=== PATIENT | female | born 1955 | race Caucasian/White ===

== ENCOUNTER → 2016-08-28 17:14 | Outpatient (CLI) | payer BC ==
[2010-06-14 13:03] VITALS: BMI 23.4
== END | disposition home or self-care (01) ==
LOC: D.MAMMO 09:00
DX: N63 Unspecified lump in breast (principal)

== ENCOUNTER 2017-07-10 09:50 | Emergency (ER) | payer BC ==
[2010-06-14 13:03] VITALS: BMI 23.4
[2017-07-10 10:16] LABS: BASOPHILS 0.1 % (0-2); EOSINOPHILS 1.1 % (0-7); HEMATOCRIT 41.3 % (36.0-48.0); HEMOGLOBIN 13.9 g/dL (12-16); IMMATURE GRANULOCYTES 0.8 % (0-5); LYMPHOCYTES 33.1 % (15-50); MCH 33.7 pg (26.0-34.0); MCHC 33.7 g/dL (31.0-37.0); MCV 100.2 fL (80.0-100.0); MEAN PLATELET VOLUME 9.8 fL (7.4-10.4); MONOCYTES 4.3 % (2-11); NEUTROPHILS 60.6 % (40-80); PLATELET COUNT 203 10x3/uL (130-400); RBC 4.12 10x6/uL (4.00-5.40); RDW 12.4 % (11.5-14.5); WBC 7.2 10x3/uL (4.8-10.8)
[2017-07-10 10:30] LABS: ALBUMIN 3.9 g/dL (3.4-5.0); ALKALINE PHOSPHATASE 52 U/L (46-116); ALT (SGPT) 39 U/L (10-68); CALC OSMOLALITY 280 mosm/kg (275-300); CALCIUM 8.8 mg/dL (8.5-10.1); CARBON DIOXIDE 27.5 mmol/L (21.0-32.0); CHLORIDE - SERUM 103 mmol/L (98-107); GLUCOSE 123 mg/dL (74-106); POTASSIUM - SERUM 3.2 mmol/L (3.5-5.1); PROTEIN - SERUM 7.2 g/dL (6.4-8.2); SODIUM 140 mmol/L (136-145); UREA NITROGEN 14 mg/dL (7-18); eGFR NON AFRICAN AMERICAN 60 mL/min (90-120)
[2017-07-10 10:41] LABS: CHOL - HDL RATIO 4.5 ratio (2.3-4.1); CHOLESTEROL, TOTAL 244 mg/dL (0-200); CKMB 0.6 U/L (0.0-3.6); CREATINE KINASE 35 UL (21-215); HDL CHOLESTEROL 54 mg/dL (32-96); LDL CHOLESTEROL 147 mg/dL (0-100); LDL-HDL RATIO 2.7 ratio (1.5-3.5); TRIGLYCERIDE 217 mg/dL (30-200); TROPONIN-I < 0.017 ng/mL (0.000-0.060)
== END 2017-07-10 15:08 | disposition home or self-care (01) ==
LOC: D.ER 09:50
PROVIDERS: Family Medicine
DX: R07.9 Chest pain, unspecified (principal)

== ENCOUNTER → 2017-11-06 20:35 | Outpatient (CLI) | payer BC ==
[2010-06-14 13:03] VITALS: BMI 23.4
== END | disposition home or self-care (01) ==
LOC: D.MAMMO 10-19 15:15
DX: Z12.31 Encounter for screening mammogram for malignant neoplasm of breast (principal)

== ENCOUNTER → 2019-03-03 08:44 | Outpatient (CLI) | payer MEDICAID ==
[2010-06-14 13:03] VITALS: BMI 23.4
== END | disposition home or self-care (01) ==
LOC: D.US 08:30
PROVIDERS: ATTEND Family Medicine
DX: N61.0 Mastitis without abscess (principal)

== ENCOUNTER 2019-11-14 02:30 | Emergency (ER) | payer MEDICAID ==
[~2019-11-14] VITALS: Ht 172.7 cm; Wt 65.9 kg
[2019-11-14 02:35] VITALS: Ht 172.7 cm; Wt 65.9 kg
[2019-11-14] MEDS ORDERED: LEVOXYL75 MCG (02:36)
[2019-11-14] MEDS ORDERED: HYDROCODON-ACE1 EA10 PO (02:36)
[2019-11-14 03:38] LABS: BASOPHILS 0.2 % (0-2); EOSINOPHILS 3.8 % (0-7); HEMATOCRIT 36.6 % (36.0-48.0); HEMOGLOBIN 12.6 g/dL (12-16); IMMATURE GRANULOCYTES 0.2 % (0-5); LYMPHOCYTES 30.4 % (15-50); MCH 34.4 pg (26.0-34.0); MCHC 34.4 g/dL (31.0-37.0); MEAN PLATELET VOLUME 9.6 fL (7.4-10.4); MONOCYTES 6.6 % (2-11); NEUTROPHILS 58.8 % (40-80); PLATELET COUNT 204 10x3/uL (130-400); RBC 3.66 10x6/uL (4.00-5.40); RDW 12.3 % (11.5-14.5); WBC 5.8 10x3/uL (4.8-10.8)
[2019-11-14 03:44] LABS: CALC OSMOLALITY 277 mosm/kg (275-300); CARBON DIOXIDE 30.5 mmol/L (21.0-32.0); CHLORIDE - SERUM 103 mmol/L (98-107); GLUCOSE 108 mg/dL (74-106); POTASSIUM - SERUM 3.7 mmol/L (3.5-5.1); SODIUM 138 mmol/L (136-145); UREA NITROGEN 16 mg/dL (7-18); eGFR NON AFRICAN AMERICAN 59 mL/min (90-120)
[2019-11-14 03:59] LABS: ALBUMIN 3.9 g/dL (3.4-5.0); ALKALINE PHOSPHATASE 51 U/L (30-120); ALT (SGPT) 32 U/L (10-68); BILIRUBIN - TOTAL 0.59 mg/dL (0.2-1.3); C-REACTIVE PROTEIN 0.5 mg/dL (0.0-0.9); CREATINE KINASE 56 UL (21-215); PROTEIN - SERUM 7.1 g/dL (6.4-8.2); THYROID STIMULATING HORMONE 5.57 uIU/mL (0.36-3.74); TROPONIN-I < 0.017 ng/mL (0.000-0.060)
[2019-11-14 05:47] VITALS: BP 125/74
== END 2019-11-14 05:49 | disposition home or self-care (01) ==
LOC: D.ER 02:30
PROVIDERS: Family Medicine
DX: M79.7 Fibromyalgia (principal); E07.9 Disorder of thyroid, unspecified